=== PATIENT | female | born 1950 | race Caucasian/White ===

== ENCOUNTER 2023-09-04 15:38 | Emergency (ER) | payer MEDICARE, SELFPAY ==
[2023-09-04 15:44] VITALS: BP 164/89
[2023-09-04 16:34] VITALS: BP 170/74
--- NOTE | 2023-09-04 16:55 | ED.GENMED ---
History of Present Illness
General
Chief Complaint: Abdominal Symptoms
Source: patient
Exam Limitations: none
Time Seen by Provider: 09/04/23 16:29
Nursing documentation reviewed up to this point in time: agreed with
Travel History
Have you had any contact with someone who has COVID-19?: No
Do you have any symptoms of coronavirus? Fever > 100 degrees, chills, cough, shortness of breath, sore throat, loss of taste or smell, muscle aches, or headache?: No
History of Present Illness
History of Present Illness:
73-year-old female presents emergency room complaining of swelling in her chest after vomiting earlier today. She states she was eating a lot of salads and vegetables and it was not agreeing with her.
Past History
Past History
ED Past Medical History: HTN, Valvular disease (The patient has heart valve disorder; mitral, aortic, and tricuspid regurg) and Hypothyroidism
ED Past Surgical History: Other (Thyroidectomy for nodules)
Social History
Tobacco: Non-smoker
Alcohol: None
Personal: Single
Living: alone
Employment: Employed
Review of Systems
Review of Systems
Allergies reviewed?: Yes
All Other Systems: Not applicable
Constitutional: Reports no symptoms
EENT: Reports no symptoms
Respiratory: Reports no symptoms
Cardiac: Reports no symptoms
ABD/GI: Reports nausea and vomiting
: Reports no symptoms
Skin: Reports no symptoms
Neurological: Reports no symptoms
Endocrine: Reports no symptoms
Hematologic/Lymphatic: Reports no symptoms
Psychiatric: Reports no symptoms
Phy Exam
Physical Exam
Physical Exam:
Physical Exam
General: no apparent distress, not acutely ill
Neck: supple. no meningeal signs. normal posterior pharynx
Heart: s1/s2 regular rate and rhythm, no murmur. equal radial
pulses.
HEENT: Pupils equal round reactive to light, EOMI
Lungs: no acute respiratory distress. clear bilaterally, mild swelling of chest wall, mildly tender
Abdomen: normal bowel sounds. not tender. no CVAT
Neuro: alert and oriented. no focal neurological deficits cranial nerves II through XII intact
Skin: no rash
Psychiatric: well kept. interactive and cooperative
Extremities: no edema. no calf tenderness. negative homans. good distal pulses
Course
Orders/Labs/Results
Orders:
Orders
09/04/23 16:57
IV Insert/Care/Rem.- Treatment PRN
CR Chest - 2 Views Urgent
Comment:
Reason For Exam: vomiting, anterior chest swelling
09/04/23 16:58
0.9% Sodium Chloride 1000 ml [Nss] 1,000 ml IV BOLUS
09/04/23 17:11
Complete Blood Count/With Diff Urgent
Comprehensive Metabolic Panel Urgent
Abnormal Lab Results
09/04/23
17:11
Absolute Neuts (auto) 8.3 H 10^3/uL
(1.4-6.5)
Absolute Lymphs (auto) 1.1 L 10^3/uL
(1.2-3.4)
Neutrophils % 83.5 H %
(42.2-75.2)
Lymphocytes % 11.2 L %
(20.5-51.1)
Sodium 134 L mmol/L
(135-145)
BUN 19 H mg/dl
(7-17)
09/04/23 17:11
09/04/23 17:11
Vital Signs
Initial and Last Documented VS:
Initial Vital Signs
Temp Pulse Resp BP Pulse Ox
98.4 F 109 18 164/89 98
09/04/23 15:44 09/04/23 15:44 09/04/23 15:44 09/04/23 15:44 09/04/23 15:44
Last Documented Vital Signs
Temp Pulse Resp BP Pulse Ox
98.5 F 100 20 170/76 97
09/04/23 20:36 09/04/23 20:36 09/04/23 20:36 09/04/23 20:36 09/04/23 20:36
MDM/Problems Addressed
Differential Diagnosis Includes:
Chest wall hematoma
MDM/Problems Addressed:
73-year-old female with nausea vomiting and mild hypovolemia. Improved after IV fluids. Possible chest wall hematoma from vomiting versus local irritation. Stable for discharge.
Chronic conditions affecting care: Cardiomyopathy
Acute Exacerbation and/or Progression of Chronic Illness: Cardiomyopathy
*Radiology
Radiology exam reviewed: radiology read reviewed (Chest x-ray no acute findings)
*Pulse Oximetry
Patient hypoxic: no
*EKG
Interpreted by ED Provider?: NA
*Barrel Drainer Interpretation
Rate: Barrel Drainer- N/A
*Critical Care Note
Total Time (30-74mins, 75-104mins- exclusive of procedures): Not Applicable
Patient Management
Social determinants of health affecting care: Living situation
Escalation/DeEscalation of care consider admission/obs:
Admit not indicated
ED Attending Note
-
Portions of this chart may have been created with voice recognition software.� Occasional wrong word or��sound alike� substitutions may have occurred due to the inherent limitations of voice recognition software.
Discharge Plan
Departure
Patient Disposition: Home (Routine Discharge)
Date of Disposition: 09/04/23
Time of Disposition: 20:18
Patient with high blood pressure during this ER visit?: Yes
Condition: Good
Discharge Problem:
Nausea & vomiting
Instructions: Nausea and Vomiting, Adult (DC), BLOOD PRESSURE
Prescriptions:
New
ondansetron 4 mg tablet,disintegrating
4 mg PO Q8H PRN (Reason: nausea and vomiting) 4 Days Qty: 10 0RF
No Action
ascorbic acid (vitamin C) [Vitamin C] 500 MG tablet
500 mg PO DAILY
prednisone 20 mg tablet
40 mg PO DAILY 3 Days Qty: 6 0RF
loratadine [Claritin] 10 mg tablet
10 mg PO DAILY 5 Days Qty: 5 0RF
epinephrine [EpiPen 2-Travis] 0.3 mg/0.3 mL auto-injector
0.3 mg IM Q4H PRN (Reason: anaphylaxis) Qty: 2 0RF
Referrals:
Neha Barahona MD [Family Provider] -
Interventions
Interventions:
*Risk Screen - Suicide Last Done: 09/04/23 16:39
*General Assessment Last Done: 09/04/23 15:44
*Neglect/Abuse Screening Last Done: 09/04/23 16:39
ED- Fall Risk Assessment Last Done: 09/04/23 16:42
*ED COVID-19 Vaccine History Last Done: 09/04/23 15:44
*Nursing Disposition Last Done: 09/04/23 20:36
II-Fntrab-Vwpmwzpkpn Assessment Last Done: 09/04/23 16:42
Discharge Date and Time
Discharge Date/Time: 09/04/23 20:37
[2023-09-04 17:00] VITALS: BP 149/62
[2023-09-04] MEDS: NSS 1000 IV (17:10)
[2023-09-04 17:26] LABS: % Basophils 0.4 % (0-2); % Eosinophils 0.2 % (0-6); % Immature Granulocytes 0.2 % (0-0.5); % Lymphocytes 11.2 % (20.5-51.1); % Monocytes 4.5 % (1.7-9.3); % Neutrophils 83.5 % (42.2-75.2); Absolute Lymphocytes 1.1 10^3/uL (1.2-3.4); Absolute Monocytes 0.5 10^3/uL (0.1-0.6); Absolute Neutrophils 8.3 10^3/uL (1.4-6.5); Hematocrit 39.6 % (37.0-47.0); Hemoglobin 13.2 g/dL (12.0-16.0); Mean Corp Hgb Conc. 33.3 g/dL (33.0-37.0); Mean Corpuscular Hgb 30.4 pg (27.0-31.0); Mean Corpuscular Volume 91.2 fL (81.0-99.0); Mean Platelet Volume 9.9 fL (7.4-10.4); Nucleated Red Blood Cells % 0 %; Platelet Count 282 10^3/uL (130-400); Red Blood Cell Count 4.34 10^6/uL (4.20-5.40); Red Cell Dist. Width 12.5 % (11.5-14.5); White Blood Cell Count 9.9 10^3/uL (4.8-10.8)
[2023-09-04 17:42] LABS: ALT (SGPT) 19 U/L (0-35); AST (SGOT) 32 U/L (14-36); Albumin 4.3 g/dl (3.5-5.0); Alkaline Phosphatase 87 U/L (38-126); Blood Urea Nitrogen 19 mg/dl (7-17); Calcium 9.1 mg/dl (8.4-10.2); Carbon Dioxide 28 mmol/L (22-30); Chloride 103 mmol/L (98-107); Glucose 96 mg/dl (70-99); Sodium 134 mmol/L (135-145); Total Bilirubin 0.5 mg/dl (0.2-1.3); Total Protein 7.1 g/dl (6.3-8.2); eGFR > 60.00
[2023-09-04 18:31] VITALS: BP 146/71
[2023-09-04 20:36] VITALS: BP 170/76
== END 2023-09-04 20:37 | disposition home or self-care (01) ==
LOC: EMR 15:38
PROVIDERS: EMERGENCY PHYSICIAN Emergency Medicine; FAMILY PHYSICIAN Internal Medicine
DX: R11.2 Nausea with vomiting, unspecified (principal); R22.2 Localized swelling, mass and lump, trunk; I10 Essential (primary) hypertension; E86.1 Hypovolemia
CPT/HCPCS: 99284; 96360; 71046; 80053; 85025

== ENCOUNTER → 2024-01-15 15:36 | Outpatient (REF) | payer MEDICARE, SELFPAY | LOC: WDC 15:36 | PROVIDERS: ATTENDING PHYSICIAN Internal Medicine | DX: Z12.31 Encounter for screening mammogram for malignant neoplasm of breast (principal) | CPT/HCPCS: 77063; 77067 ==

== ENCOUNTER → 2024-01-19 10:53 | Outpatient (REF) | payer MEDICARE, SELFPAY | LOC: RCS 10:53 | PROVIDERS: ATTENDING PHYSICIAN Internal Medicine Cardiovascular Disease; FAMILY PHYSICIAN Internal Medicine | DX: R00.2 Palpitations (principal); I35.1 Nonrheumatic aortic (valve) insufficiency; I36.1 Nonrheumatic tricuspid (valve) insufficiency; R03.0 Elevated blood-pressure reading, without diagnosis of hypertension | CPT/HCPCS: 93306 ==

== ENCOUNTER 2024-12-12 20:15 | Emergency (ER) | payer MEDICARE, SELFPAY ==
[2024-12-12 20:18] VITALS: BP 184/88
[2024-12-12 20:45] LABS: Hematocrit 37.5 % (37.0-47.0); Hemoglobin 13.0 g/dL (12.0-16.0); Mean Corp Hgb Conc. 34.7 g/dL (33.0-37.0); Mean Corpuscular Volume 89.7 fL (81.0-99.0); Nucleated Red Blood Cells % 0 %; Platelet Count 241 10^3/uL (130-400); Red Cell Dist. Width 12.3 % (11.5-14.5)
[2024-12-12 20:52] LABS: Urine Character Clear (Clear)
[2024-12-12 21:00] LABS: ALT (SGPT) 16 U/L (0-35); AST (SGOT) 29 U/L (14-36); Albumin 4.6 g/dl (3.5-5.0); Alkaline Phosphatase 82 U/L (38-126); Blood Urea Nitrogen 12 mg/dl (7-17); Calcium 8.9 mg/dl (8.4-10.2); Carbon Dioxide 26 mmol/L (22-30); Chloride 101 mmol/L (98-107); Glucose 146 mg/dl (70-99); Potassium 3.5 mmol/L (3.5-5.1); Sodium 134 mmol/L (135-145); Total Protein 7.7 g/dl (6.3-8.2); eGFR > 60.00
[2024-12-12 21:22] LABS: Urine White Cell 0-2 /HPF (0-5)
[2024-12-13] MEDS: TYLENOL 1000 MG PO (01:11)
[2024-12-13 01:33] VITALS: BP 177/67
--- NOTE | 2024-12-13 01:45 | ED.GENMED ---
History of Present Illness
General
Chief Complaint: Flank Pain
Time Seen by Provider: 12/13/24 00:10
History of Present Illness
History of Present Illness:
74-year-old female presenting to the emergency department for lower back pain. Patient reports symptoms started a few days ago. She is unsure of any significant trauma, however was at the shoe store trying on multiple pairs of shoes, bending up
and down. She also suspects that she may have slept in the chair wrong. Pain was initially across the lower back. She was feeling constipated, had 2 bowel movements today and pain on the right side improved, however seem more prominent on the
left side. She went to urgent care and was told that she had blood in her urine and was instructed to come to the ER to evaluate her kidneys. Patient notes that she has had a longstanding issue of microscopic hematuria, evaluated in the past by
urology without abnormality. She denies any pain in the abdomen. She denies any dysuria or urinary frequency. She has been taking Tylenol for the pain. Pain is worse with movement and ambulation. Denies additional acute medical complaints
Past History
Past History
ED Past Medical History: HTN, Valvular disease (The patient has heart valve disorder; mitral, aortic, and tricuspid regurg) and Hypothyroidism
ED Past Surgical History: Other (Thyroidectomy for nodules)
Social History
Tobacco: Non-smoker
Alcohol: None
Personal: Single
Living: alone
Employment: Employed
Phy Exam
Physical Exam
Physical Exam:
General: Well-appearing, no clinical signs of dehydration, nontoxic and in no acute distress
HEENT: protecting airway
Neck: appears supple
CV: Normal heart rate, regular rhythm
Resp: No accessory muscle use, no increased work of breathing, lungs clear to auscultation bilaterally
Abd: Soft and non-distended, no tenderness to palpation, normal bowel sounds. No CVA tenderness
Extremities: No deformities, no swelling, no erythema. Mild tenderness to the left lower lumbar back
Neuro: alert, no focal neurologic deficit, ambulating without difficulty
: deferred
Rectal: deferred
Psych: Normal affect
Skin: Intact
Course
Orders/Labs/Results
Orders:
Orders
12/12/24 20:35
Complete Blood Count/With Diff Urgent
Comprehensive Metabolic Panel Urgent
Urinalysis Reflex To Culture Urgent
Date Specimen was Collected: 12/12/24
Time Specimen was Collected: 20:22
Urine Microscopic Reflex Cult Urgent
12/13/24 00:48
CT Abd/pel Without Iv Or Oral Urgent
Comment:
Reason For Exam: L-sided pain, possible stone vs muscular pain
Acetaminophen [Tylenol] 1,000 mg PO NOW STA
Abnormal Lab Results
12/12/24
20:35
WBC 13.5 H 10^3/uL
(4.8-10.8)
RBC 4.18 L 10^6/uL
(4.20-5.40)
MCH 31.1 H pg
(27.0-31.0)
Abs Immat Gran (auto) 0.1 H 10^3/uL
(0-0.05)
Absolute Neuts (auto) 10.8 H 10^3/uL
(1.4-6.5)
Absolute Monos (auto) 1.1 H 10^3/uL
(0.1-0.6)
Neutrophils % 79.9 H %
(42.2-75.2)
Lymphocytes % 11.2 L %
(20.5-51.1)
Sodium 134 L mmol/L
(135-145)
Glucose 146 H mg/dl
(70-99)
Ur Occult Blood Reflex 4+ A
(Negative)
Urine RBC 3-6 A /HPF
(0-2)
Urine Albumin (Reflex) 1+ A
(Neg - Trace)
12/12/24 20:35
12/12/24 20:35
Vital Signs
Initial and Last Documented VS:
Initial Vital Signs
Temp Pulse Resp BP Pulse Ox
98.9 F 117 18 184/88 98
12/12/24 20:18 12/12/24 20:18 12/12/24 20:18 12/12/24 20:18 12/12/24 20:18
Last Documented Vital Signs
Temp Pulse Resp BP Pulse Ox
98.9 F 83 18 177/67 96
12/12/24 20:18 12/13/24 01:33 12/13/24 01:33 12/13/24 01:33 12/13/24 01:48
MDM/Problems Addressed
MDM/Problems Addressed:
74-year-old female presenting with lower back pain. Vital signs on arrival are significant for hypertension.
On exam patient resting comfortably, no acute distress or discomfort. Symptom presentation and physical exam appears most consistent with musculoskeletal back pain. Mild reproducible tenderness to lower lower back, notes pain is worse with lifting
her leg up and with ambulation. No focal neurologic with intact strength and sensation to the lower extremity. No significant CVA tenderness or tenderness to abdomen with lower suspicion for renal pathology, however noted to have moderate
microscopic hematuria on urinalysis. Urinalysis repeated here, again does show hematuria, no additional infection. Labs obtained prior to my assessment, normal renal function. Patient is allergic to contrast, will obtain CT imaging without
contrast to ensure no renal pathology. Tylenol administered for pain.
03:00 -CT without any acute abnormality. On reassessment patient notes significant improvement after Tylenol. Continue to suspect musculoskeletal back pain. Feel stable for discharge with close outpatient primary care follow-up and continued
supportive therapy. Return precautions discussed and patient verbalized understanding
*Pulse Oximetry
SaO2: 96
Oxygen Mode of Delivery: Room air
Patient hypoxic: no
*Critical Care Note
Total Time (30-74mins, 75-104mins- exclusive of procedures): Not Applicable
ED Attending Note
-
Portions of this chart may have been created with voice recognition software.� Occasional wrong word or��sound alike� substitutions may have occurred due to the inherent limitations of voice recognition software.
Discharge Plan
Departure
Prescriptions:
No Action
ascorbic acid (vitamin C) [Vitamin C] 500 MG tablet
500 mg PO DAILY
prednisone 20 mg tablet
40 mg PO DAILY 3 Days Qty: 6 0RF
loratadine [Claritin] 10 mg tablet
10 mg PO DAILY 5 Days Qty: 5 0RF
epinephrine [EpiPen 2-Travis] 0.3 mg/0.3 mL auto-injector
0.3 mg IM Q4H PRN (Reason: anaphylaxis) Qty: 2 0RF
ondansetron 4 mg tablet,disintegrating
4 mg PO Q8H PRN (Reason: nausea and vomiting) 4 Days Qty: 10 0RF
Referrals:
Neha Barahona MD [Family Provider, Internal Medicine]
Interventions
Interventions:
*Risk Screen - Suicide Last Done: 12/12/24 20:18
*General Assessment Last Done: 12/12/24 20:18
*Neglect/Abuse Screening Last Done: 12/12/24 20:18
DE-Kuhdac-Vqbbgprycx Assessment Last Done: 12/12/24 23:15
Discharge Date and Time
Print Language: BELARUSIAN
== END 2024-12-13 03:30 | disposition home or self-care (01) ==
LOC: EMR 20:15
PROVIDERS: Student in an Organized Health Care Education/Training Program; EMERGENCY PHYSICIAN Student in an Organized Health Care Education/Training Program; FAMILY PHYSICIAN Internal Medicine
DX: M54.50 Low back pain, unspecified (principal); K59.00 Constipation, unspecified
CPT/HCPCS: 99285; 74176; 80053; 81003; 81015; 85025

== ENCOUNTER → 2025-01-20 10:19 | Outpatient (REF) | payer MEDICARE, SELFPAY | LOC: WDC 10:19 | PROVIDERS: ATTENDING PHYSICIAN Internal Medicine | DX: Z12.31 Encounter for screening mammogram for malignant neoplasm of breast (principal) | CPT/HCPCS: 77063; 77067 ==

== ENCOUNTER → 2025-02-07 13:15 | Outpatient (REF) | payer MEDICARE, SELFPAY | LOC: RAD 13:15 | PROVIDERS: ATTENDING PHYSICIAN Internal Medicine | DX: Z78.0 Asymptomatic menopausal state (principal) | CPT/HCPCS: 77080 ==